=== PATIENT | female | born 1970 | race Caucasian/White ===

== ENCOUNTER → 2016-12-01 | Outpatient (CLI) | payer BC ==
--- NOTE | 2016-12-02 10:23 | RADIOLOGY REPORT PS360 ---
US PELVIS-TRANSVAGINAL ONLY HISTORY: DYSURIA, LOW ABD PAIN ORDERING PHYSICIAN: Jamia Elder APRN PATIENT AGE: 46 years COMPARISON: None FINDINGS: Uterus measures 5.2 x 2.8 x 4.4 cm with a combined endometrial thickness of 6 mm. No uterine mass is evident. The left ovary measures 3 x 1.5 x 1.6 cm. The right ovary measures 1.7 x 0.7 x 1.4 cm. Bilateral ovarian blood flow is present. No adnexal mass or cul-de-sac fluid. IMPRESSION: Unremarkable pelvic ultrasound.
== END ==
LOC: RAD 14:46
DX: R30.0 Dysuria (principal); R10.30 Lower abdominal pain, unspecified